=== PATIENT | female | born 1995 | race Two or more races ===

== ENCOUNTER 2017-03-03 10:23 | Emergency (ER) | payer BC ==
[~2017-03-03] VITALS: Ht 157.5 cm; Wt 62.3 kg
[2017-03-03 11:53] LABS: microscopic required? NO
[2017-03-03 12:14] LABS: urine erythrocyte NEGATIVE (NEGATIVE)
[2017-03-03 12:35] VITALS: BP 121/62
== END 2017-03-03 12:35 | disposition home or self-care (01) ==
LOC: ED 10:23
PROVIDERS: Emergency Medicine
DX: O36.4XX0 Maternal care for intrauterine death, not applicable or unspecified (principal); Z3A.10 10 weeks gestation of pregnancy

== ENCOUNTER 2017-09-21 18:14 | Emergency (ER) | payer BC, OTHER ==
[~2017-09-21] VITALS: Ht 157.5 cm; Wt 54.5 kg
[2017-09-21 18:59] LABS: BASOPHIL % 0.5 % (0-2); PLATELET COUNT 348 x10^3mcL (130-400); RED CELL DISTRIBUTION WIDTH 13.1 % (11.5-14.5)
[2017-09-21 21:21] LABS: microscopic required? NO
[2017-09-21 21:41] LABS: urine erythrocyte NEGATIVE (NEGATIVE)
[2017-09-21 22:08] VITALS: BP 112/75
== END 2017-09-21 22:00 | disposition home or self-care (01) ==
LOC: ED 18:14
PROVIDERS: Emergency Medicine Emergency Medical Services
DX: O20.0 Threatened abortion (principal); Z3A.00 Weeks of gestation of pregnancy not specified; Z3A.01 Less than 8 weeks gestation of pregnancy
CPT/HCPCS: 36415

== ENCOUNTER 2017-10-12 14:11 | Emergency (ER) | payer BC, OTHER ==
[~2017-10-12] VITALS: Ht 157.5 cm; Wt 54.4 kg
[2017-10-12 15:14] VITALS: Ht 157.5 cm; Wt 54.4 kg
[2017-10-12 17:03] LABS: microscopic required? NO
[2017-10-12 17:26] LABS: BASOPHIL % 0.2 % (0-2); PLATELET COUNT 320 x10^3mcL (130-400); RED CELL DISTRIBUTION WIDTH 12.6 % (11.5-14.5)
[2017-10-12 18:07] LABS: UA SPECIFIC GRAVITY 1.025 (1.005-1.035); urine erythrocyte NEGATIVE (NEGATIVE)
[2017-10-12 19:42] VITALS: BP 97/57
== END 2017-10-12 19:42 | disposition home or self-care (01) ==
LOC: ED 14:11
PROVIDERS: Emergency Medicine
DX: O26.891 Other specified pregnancy related conditions, first trimester (principal); Z3A.09 9 weeks gestation of pregnancy; Z90.49 Acquired absence of other specified parts of digestive tract

== ENCOUNTER 2018-01-30 15:29 | Emergency (ER) | payer BC, OTHER ==
[~2018-01-30] VITALS: Ht 157.5 cm; Wt 65.8 kg
[2018-01-30 15:37] VITALS: Ht 157.5 cm; Wt 65.8 kg
[2018-01-30 17:17] LABS: BASOPHIL % 0.3 % (0-2); PLATELET COUNT 280 x10^3mcL (130-400); RED CELL DISTRIBUTION WIDTH 13.8 % (11.5-14.5)
[2018-01-30 17:29] LABS: CALCIUM 8.9 mg/dL (8.5-10.1); CARBON DIOXIDE 26.3 mmol/L (21-32); CHLORIDE SERUM 102 mmol/L (98-107); CREATININE SERUM 0.6 mg/dL (0.6-1.0); GFR1 > 60 mL/min; GLUCOSE SERUM 85 mg/dL (74-106); POTASSIUM SERUM 4.3 mmol/L (3.5-5.1); SODIUM SERUM 136 mmol/L (136-145)
[2018-01-30 17:33] LABS: ALKALINE PHOSPHATASE 54 U/L (46-116); ALT/SGPT 31 U/L (14-59); AST/SGOT 21 U/L (15-37); BILIRUBIN TOTAL 0.34 mg/dL (0.20-1.00); LIPASE 116 IU/L (73-393); TOTAL PROTEIN, SERUM 6.5 g/dL (6.4-8.2)
[2018-01-30 17:48] LABS: microscopic required? NO
[2018-01-30 17:58] LABS: UA SPECIFIC GRAVITY 1.015 (1.005-1.035); urine erythrocyte NEGATIVE (NEGATIVE)
[2018-01-30 19:25] VITALS: BP 93/61
== END 2018-01-30 19:25 | disposition short-term general hospital (02) ==
LOC: ED 15:29
PROVIDERS: Emergency Medicine
DX: O26.892 Other specified pregnancy related conditions, second trimester (principal); N20.0 Calculus of kidney; Z3A.26 26 weeks gestation of pregnancy
CPT/HCPCS: J2405; J3010; J7030; Q0092

== ENCOUNTER 2018-09-27 09:08 | Emergency (ER) | payer BC, OTHER ==
[~2018-09-27] VITALS: Ht 157.5 cm; Wt 59.6 kg
[2018-09-27 09:13] VITALS: Ht 157.5 cm; Wt 59.6 kg
[2018-09-27 10:52] VITALS: BP 110/74
== END 2018-09-27 10:52 | disposition home or self-care (01) ==
LOC: ED 09:08
DX: K04.7 Periapical abscess without sinus (principal); K08.89 Other specified disorders of teeth and supporting structures; Z90.89 Acquired absence of other organs
CPT/HCPCS: J0696; J7030; Q0162